=== PATIENT | male | born 1955 | race Caucasian/White ===

== ENCOUNTER 2017-08-05 17:13 | Inpatient (IN) | payer MEDICARE, BC ==
[~2017-08-05] VITALS: Ht 172.7 cm; Wt 78.1 kg
[2017-08-05 17:58] LABS: BASO % 0.2 % (0.0-2.0); GRAN # 3.8 (1.4-6.5); GRAN % 70.9 % (42.2-75.2); HEMATOCRIT 35.9 % (42.0-52.0); HEMOGLOBIN 11.7 g/dl (13.5-18.0); LYMPH % 18.9 % (20.0-51.0); MEAN CELL VOLUME 86 fl (80.0-100.0); MEAN CORPUSCULAR HEMOGLOBIN 28 pg (27.0-31.0); MEAN CORPUSCULAR HGB CONC 33 g/dl (33.0-37.0); MONO # 0.5 (0.1-0.6); MONO % 9.6 % (1.7-9.3); PLATELET COUNT 77 K/mm3 (130-400); REDCELL DISTRIBUTION WIDTH-CV 15.2 % (11.5-14.5)
[2017-08-05 18:02] LABS: ALANINE AMINOTRANSFERASE 50 U/L (21-72); ALBUMIN 4.2 gm/dL (3.5-5.0); ALKALINE PHOSPHATASE 86 U/L (50-136); ANION GAP 9 mmol/L (7-16); AST,SGOT 50 U/L (15-37); BILIRUBIN,TOTAL 0.2 mg/dL (0.0-1.0); BLOOD UREA NITROGEN 13 mg/dL (9-20); CALCIUM 8.3 mg/dL (8.4-10.2); CARBON DIOXIDE 27 mmol/L (22-30); CHLORIDE 98 mmol/L (98-107); CREATININE, serum 0.77 mg/dL (0.66-1.25); GLUCOSE 122 mg/dL (74-106); POTASSIUM 4.3 mmol/L (3.4-5.0); SODIUM 134 mmol/L (137-145); TOTAL PROTEIN 7.8 gm/dL (6.4-8.2)
[2017-08-05 18:14] LABS: TROPONIN-I < 0.012 ng/mL (0.000-0.034)
[2017-08-05] MEDS ORDERED: FIORICET 325 MG1 TA1 PO (18:24)
[2017-08-05] MEDS ORDERED: CATAPRES 0.1MG0.1 MG PO (18:25)
[2017-08-05] MEDS ORDERED: BENTYL 10MG10 MG/CAP PO (18:25)
[2017-08-05] MEDS ORDERED: SOMA 350MG350 MG/TAB PO (18:25)
[2017-08-05] MEDS ORDERED: LYRICA 50MG CAP50 MG PO (18:26)
[2017-08-05] MEDS ORDERED: NEURONTIN800 MG/TAB PO (18:26)
[2017-08-05] MEDS ORDERED: REMERON45 MG PO (18:27)
[2017-08-05] MEDS ORDERED: MORPHINE 1515 MG/TAB PO ×2 (18:28→18:29)
[2017-08-05] MEDS ORDERED: K-TAB10 PO (18:30)
[2017-08-05] MEDS ORDERED: PROTONIX 40MG T40 MG PO (18:30)
[2017-08-05] MEDS ORDERED: CARAFATE 1GM1 G PO (18:31)
[2017-08-05] MEDS ORDERED: NEURONTIN100 MG/CAP PO ×2 (18:32→21:15)
[2017-08-05] MEDS ORDERED: DESYREL 100MG100 MG PO (18:32)
[2017-08-05] MEDS ORDERED: MORPHINE ER PO (18:34)
[2017-08-05] MEDS ORDERED: KLONOPIN 0.5MG0.5 MG PO (18:34)
[2017-08-05 20:29] VITALS: BP 122/69; PULSE 58; TEMP 99.4
[2017-08-05] MEDS ORDERED: Promethazine PO (21:17)
[2017-08-06] VITALS (7 sets, daily range): BP systolic 112–125; BP diastolic 64–77; PULSE 48–54; TEMP 97.2–97.9
[2017-08-06 02:14] LABS: INR 1.2 (0.8-3.0); PROTHROMBIN TIME 13.5 SECONDS (9.7-12.8)
[2017-08-06 02:17] LABS: PARTIAL THROMBOPLASTIN TIME 26.8 SECONDS (26.0-37.0)
[2017-08-06 06:51] LABS: MEAN CELL VOLUME 88 fl (80.0-100.0); MEAN CORPUSCULAR HGB CONC 32 g/dl (33.0-37.0); PLATELET COUNT 73 K/mm3 (130-400); REDCELL DISTRIBUTION WIDTH-CV 15.7 % (11.5-14.5)
[2017-08-06 07:01] LABS: ALBUMIN 3.6 gm/dL (3.5-5.0); BILIRUBIN,TOTAL 0.2 mg/dL (0.0-1.0); CALCIUM 7.7 mg/dL (8.4-10.2); CREATININE, serum 0.67 mg/dL (0.66-1.25); POTASSIUM 4.2 mmol/L (3.4-5.0); TOTAL PROTEIN 6.9 gm/dL (6.4-8.2)
[2017-08-06 07:08] LABS: HEMATOCRIT 33.3 % (42.0-52.0); HEMOGLOBIN 10.6 g/dl (13.5-18.0); MEAN CORPUSCULAR HEMOGLOBIN 28 pg (27.0-31.0)
[2017-08-06 09:25] LABS: BAND 22 % (0-10); LYMPHOCYTE 26 % (20.0-51.0); METAMYELOCYTE 1 % (0-0); NEUTROPHILS 40 % (42.0-75.2)
[2017-08-06 09:26] LABS: PLATELET ESTIMATE DECREASED (NORMAL)
[2017-08-07 03:22] VITALS: BP 115/61; PULSE 55; TEMP 97.4
[2017-08-07 07:56] LABS: BASO % 0.2 % (0.0-2.0); EOS # 0.1 (0.0-0.7); EOS % 1.1 % (0-4.0); GRAN # 2.9 (1.4-6.5); GRAN % 65.6 % (42.2-75.2); LYMPH # 1.2 (1.2-3.4); LYMPH % 26.3 % (20.0-51.0); MEAN CELL VOLUME 90 fl (80.0-100.0); MEAN CORPUSCULAR HGB CONC 31 g/dl (33.0-37.0); MEAN PLATELET VOLUME 11.1 fl (7.4-10.4); MONO # 0.3 (0.1-0.6); MONO % 6.6 % (1.7-9.3); PLATELET COUNT 73 K/mm3 (130-400); RED BLOOD COUNT 3.92 M/mm3 (4.20-5.60); REDCELL DISTRIBUTION WIDTH-CV 15.9 % (11.5-14.5)
[2017-08-07 08:06] LABS: CALCIUM 7.7 mg/dL (8.4-10.2); CREATININE, serum 0.75 mg/dL (0.66-1.25); POTASSIUM 4.5 mmol/L (3.4-5.0)
[2017-08-07 08:10] LABS: HEMATOCRIT 35.2 % (42.0-52.0); HEMOGLOBIN 10.9 g/dl (13.5-18.0); MEAN CORPUSCULAR HEMOGLOBIN 28 pg (27.0-31.0)
[2017-08-07 09:03] VITALS: BP 120/66; PULSE 70; TEMP 98.2
[2017-08-07 10:33] VITALS: BP 111/57; PULSE 61; TEMP 99.2
[2017-08-07 17:03] LABS: IEPS IGA 126 mg/dL (63-484); IEPS IGG 1629 mg/dL (540-1822); IEPS TP 6.7 g/dL (6.0-7.6)
[2017-08-07 17:06] VITALS: BP 128/65; PULSE 69; TEMP 98.5
[2017-08-07 20:01] VITALS: BP 126/76; PULSE 60; TEMP 97.6
[2017-08-08 00:55] VITALS: BP 128/76; PULSE 58; TEMP 98.4
[2017-08-08 03:49] VITALS: BP 112/64; PULSE 57; TEMP 97.8
[2017-08-08 06:55] LABS: BASO % 0.3 % (0.0-2.0); EOS # 0.1 (0.0-0.7); EOS % 2.4 % (0-4.0); GRAN # 1.8 (1.4-6.5); GRAN % 54.4 % (42.2-75.2); LYMPH # 1.1 (1.2-3.4); LYMPH % 34.1 % (20.0-51.0); MEAN CELL VOLUME 88 fl (80.0-100.0); MEAN CORPUSCULAR HGB CONC 32 g/dl (33.0-37.0); MEAN PLATELET VOLUME 11.1 fl (7.4-10.4); MONO # 0.3 (0.1-0.6); MONO % 8.5 % (1.7-9.3); PLATELET COUNT 73 K/mm3 (130-400); RED BLOOD COUNT 3.75 M/mm3 (4.20-5.60); REDCELL DISTRIBUTION WIDTH-CV 15.7 % (11.5-14.5)
[2017-08-08 07:02] LABS: HEMATOCRIT 32.9 % (42.0-52.0); HEMOGLOBIN 10.5 g/dl (13.5-18.0); MEAN CORPUSCULAR HEMOGLOBIN 28 pg (27.0-31.0)
[2017-08-08 07:05] LABS: CALCIUM 8.3 mg/dL (8.4-10.2); CREATININE, serum 0.79 mg/dL (0.66-1.25); POTASSIUM 4.3 mmol/L (3.4-5.0)
[2017-08-08 07:36] VITALS: BP 118/74; PULSE 92; TEMP 97.8
[2017-08-08 10:39] VITALS: BP 116/65; PULSE 65; TEMP 97.7
[2017-08-08 10:41] VITALS: BP 120/70; PULSE 73
[2017-08-08 10:44] VITALS: BP 112/72; PULSE 79
[2017-08-08] MEDS ORDERED: LEVAQUIN 750MG750 M1 PO (11:07)
[2017-08-08 14:01] LABS: ALBUMIN FRACTION 3.6 g/dL (2.6-4.5); ALBUMIN PERCENT 53.3 % (48.7-61.8); ALPHA 1 FRACTION 0.3 g/dL (0.3-0.5); ALPHA 1 PERCENT 4.9 % (3.4-8.3); ALPHA 2 FRACTION 0.7 g/dL (0.6-1.2); ALPHA 2 PERCENT 10.2 % (8.4-17.5); BETA 1 FRACTION 0.4 g/dL (0.4-0.6); BETA 1 PERCENT 5.8 % (5.4-8.9); BETA 2 FRACTION 0.3 g/dL (0.2-0.5); BETA 2 PERCENT 4.3 % (3.8-7.7); IEPS GAMMA FRACTION 1.4 g/dL (0.4-1.7); IEPS GAMMA PERCENTAGE 21.5 % (8.1-23.0); IEPS IGM 133 mg/dL (22-240); IEPS MON1E 0.9 g/dL (())
[2017-08-08 18:03] LABS: KAPPA FREE LIGHT CHAIN-SERUM 3.43 mg/dL (()); LAMDA FREE LIGHT CHAIN SERUM 1.97 mg/dL (())
== END 2017-08-08 16:19 | disposition home or self-care (01) | DRG 193 ==
LOC: COL.ER 17:13 → MEDICAL 19:23
PROVIDERS: Emergency Medicine; Internal Medicine; Nurse Practitioner Family; Physician Assistant
DX: J12.3 Human metapneumovirus pneumonia (principal); J96.01 Acute respiratory failure with hypoxia; D61.818 Other pancytopenia; G89.21 Chronic pain due to trauma
CPT/HCPCS: 99223-AI; 99233-AI; 99239; J1956; J2405; J7030

== ENCOUNTER 2017-12-15 11:37 | Outpatient (CLI) | payer MEDICARE, BC ==
[~2017-12-15] VITALS: Ht 172.7 cm; Wt 73.0 kg
[2017-12-15] VITALS (12 sets, daily range): BP systolic 99–124; BP diastolic 56–70; PULSE 39–46; TEMP 97.7
[~2017-12-15 11:37] MED LIST: BENTYL 10MG10 MG/CAP PO; CARAFATE 1GM1 G PO; CATAPRES 0.1MG0.1 MG PO; DESYREL 100MG100 MG PO; FIORICET 325 MG1 TA1 PO; K-TAB10 PO; KLONOPIN 0.5MG0.5 MG PO; LEVAQUIN 750MG750 M1 PO; LYRICA 50MG CAP50 MG PO; MORPHINE 1515 MG/TAB PO; MORPHINE ER PO; NEURONTIN100 MG/CAP PO; NEURONTIN800 MG/TAB PO; PROTONIX 40MG T40 MG PO; Promethazine PO; REMERON45 MG PO; SOMA 350MG350 MG/TAB PO
[2017-12-15] MEDS ORDERED: NEURONTIN800 MG/TAB PO (12:17)
[2017-12-15] MEDS ORDERED: REMERON SOLTAB45 MG PO (12:27)
[2017-12-15 14:51] LABS: BASO % 0.5 % (0.0-2.0); EOS # 0.2 (0.0-0.7); EOS % 4.4 % (0-4.0); GRAN # 2.2 (1.4-6.5); GRAN % 53.8 % (42.2-75.2); HEMOGLOBIN 11.5 g/dl (13.5-18.0); LYMPH # 1.2 (1.2-3.4); LYMPH % 29.5 % (20.0-51.0); MEAN CELL VOLUME 90 fl (80.0-100.0); MEAN CORPUSCULAR HEMOGLOBIN 30 pg (27.0-31.0); MEAN CORPUSCULAR HGB CONC 33 g/dl (33.0-37.0); MEAN PLATELET VOLUME 10.5 fl (7.4-10.4); MONO # 0.5 (0.1-0.6); MONO % 11.6 % (1.7-9.3); PLATELET COUNT 107 K/mm3 (130-400); RED BLOOD COUNT 3.87 M/mm3 (4.20-5.60); REDCELL DISTRIBUTION WIDTH-CV 13.3 % (11.5-14.5)
[2017-12-15 14:52] LABS: HEMATOCRIT 34.7 % (42.0-52.0)
== END 2017-12-15 17:00 | disposition home or self-care (01) ==
LOC: EUO 11:37 → COL.RAD 12:30 → EUO 17:00
PROVIDERS: Pathology Anatomic Pathology & Clinical Pathology
DX: D47.2 Monoclonal gammopathy (principal); D61.818 Other pancytopenia

== ENCOUNTER → 2017-12-22 | Outpatient (CLI) | payer MEDICARE, BC ==
[~2017-12-22] MED LIST changes: +REMERON SOLTAB45 MG PO
== END ==
LOC: COL.PUL 12:50
DX: R06.02 Shortness of breath (principal)
CPT/HCPCS: J7674

== ENCOUNTER 2020-10-10 08:42 | Observation (INO) | payer MEDICARE, BC ==
[~2020-10-10] VITALS: Ht 172.7 cm; Wt 160.0 kg
[~2020-10-10 08:42] MED LIST changes: +CEPHALEXIN500 M1 PO; -MORPHINE ER PO; +MS CONTIN 115 MG/TAB PO; +NEURONTIN300 MG/CAP PO; +PHENERGAN 25 TA25 MG PO; -Promethazine PO; +ZEBETA 5MG5 MG PO; +pain pump ICA
[2020-10-10 12:26] VITALS: BP 140/81; PULSE 62; TEMP 97.8
[2020-10-10] MEDS ORDERED: ZYVOX 600MG600 MG PO (13:41)
[2020-10-10 16:53] VITALS: BP 144/78; PULSE 60; TEMP 97.8
--- NOTE | 2020-10-10 18:08 | NUR ---
DR. MCGILL'S OFFICE CALLED TO VERIFY MEDICATIONS IN PAIN PUMP AND DOSES, MED REC COMPLETED WITH . PT REFUSES TO DRINK OR TAKE PO MEDICATIONS. HAS REPORTED VOMITTING ONCE WHILE HERE THIS EVENING. LR HANGING AT 75ML/HR. PT AWAITING BEING TAKEN DOWN TO CT THIS EVENING FOR CT OF ABDOMEN.
--- NOTE | 2020-10-10 20:00 | NUR ---
Assessment complete. Patient is currently resting in bed; he does arouse to voice but is drowsy. He is alert and oriented with complaints of nausea. He has not actively vomited this shift. PRN Zofran is adminstered. Patient states his LLQ pain is tolerable at 1/[address] Arnett has just been in to drain 96 mls of clear,florencio fluid from around the patient's pain pump which relieved his pain. Dr. Arnett states no signs of infection were noted. No peripheral edema is noted. All bowel sounds are audible and abdomen is flat and soft. Heart sounds are normal/regular and lungs are clear. No new concerns, call light in reach.
--- NOTE | 2020-10-10 21:31 | NUR ---
PATIENT [facility] PROVIDED CPAP MACHINE
[2020-10-10 23:33] VITALS: BP 118/71; PULSE 60; TEMP 97.4
[2020-10-11 03:25] VITALS: BP 122/74; PULSE 60; TEMP 97.5
[2020-10-11 06:11] LABS: BASO % 0.8 % (0.0-2.0); EOS # 0.1 (0.0-0.7); GRAN # 1.5 (1.4-6.5); GRAN % 56.5 % (42.2-75.2); HEMOGLOBIN 10.6 g/dl (13.5-18.0); LYMPH # 0.8 (1.2-3.4); LYMPH % 30.2 % (20.0-51.0); MEAN CELL VOLUME 95 fl (80.0-100.0); MEAN CORPUSCULAR HEMOGLOBIN 31 pg (27.0-31.0); MEAN CORPUSCULAR HGB CONC 33 g/dl (33.0-37.0); MEAN PLATELET VOLUME 10.6 fl (7.4-10.4); MONO # 0.2 (0.1-0.6); MONO % 9.1 % (1.7-9.3); PLATELET COUNT 107 K/mm3 (130-400); REDCELL DISTRIBUTION WIDTH-CV 12.9 % (11.5-14.5)
[2020-10-11 06:22] LABS: CALCIUM 8.2 mg/dL (8.4-10.2); CREATININE, serum 0.94 (0.66-1.25); MAGNESIUM 1.8 mg/dL (1.6-2.3)
--- NOTE | 2020-10-11 06:30 | NUR ---
Patient has had an uneventful night. He has rested throughout the night with no further complaints of pain/nausea. Vital signs have remained stable. LR still infusing into right forearm IV at 75 ml/hr. Will continue to monitor.
[2020-10-11 06:33] LABS: HEMATOCRIT 32.2 % (42.0-52.0)
--- NOTE | 2020-10-11 07:00 | NUR ---
Report received from CATRINA Figueroa. PT in bed resting, feeling nauseated, will provide nausea meds.
[2020-10-11 07:44] VITALS: BP 132/76; PULSE 60; TEMP 97.6
--- NOTE | 2020-10-11 09:12 | NUR ---
Assessment charted. Pt feeling nauseated, PRN nausea meds provided per reqeust. Discussed plan of care and that Dr. Arnett came yesterday and aspirated 96mls from LLQ site. RLQ brianne are intact. PT states he is feeling poorly today, at bedside, will get urine shortly. Will continue to monitor.
[2020-10-11] MEDS ORDERED: FLOMAX 0.40.4 MG/CAP PO (10:21)
[2020-10-11] MEDS ORDERED: ZOFRAN ODT8 MG PO (10:22)
[2020-10-11] MEDS ORDERED: PROTONIX 40MG T40 MG PO (10:23)
[2020-10-11 10:37] LABS: COLLECTION METHOD CLEAN CATCH
[2020-10-11 10:50] LABS: PH 5 (5-8); URINE APPEARANCE Clear; URINE COLOR Yellow; URINE PROTEIN(semi-quant) Negative (NEGATIVE)
[2020-10-11 10:51] LABS: URINE BILIRUBIN Negative (NEGATIVE); URINE GLUCOSE Negative (NEGATIVE); URINE KETONE Trace (NEGATIVE); URINE UROBILINOGEN Negative (NEGATIVE)
[2020-10-11 10:52] LABS: URINE BLOOD Negative (NEGATIVE); URINE LEUKOCYTE ESTERASE Negative (NEGATIVE); URINE NITRATE Negative (NEGATIVE)
--- NOTE | 2020-10-11 12:58 | NUR ---
Sweep Press Operator attended clinical rounds with the team. PT/OT ordered for patient, who will discharge later today. SW met with patient following rounds to discuss discharge planning. Patient lives in [place], [place] with his , Rebeka (ph#[phone]) who is at bedside. Patient sees Dr. Otto in [place] for primary care and obtains medications from [facility] in [place]. Patient states one of his antibiotics is expensive, but they are able to afford it. Patient wears a bipap at night and has no other DME. Patient is independent with ADLS and plans to return home upon discharge. Patient reports he has DPOA-HC completed which designates his . Discharge Plan: Home
--- NOTE | 2020-10-11 13:09 | NUR ---
First visit from the proofsheet corrector. No needs right now.
--- NOTE | 2020-10-11 13:13 | NUR ---
Discharge completed at this time, INT dc'd, tip intact. Pt received discahrge packet, answered all questions, reviewed new meds. at bedside. Pt left with all bleonigngs, escorted out via wheelchair, to drive home, criteria met.
== END 2020-10-11 12:07 | disposition home or self-care (01) ==
LOC: MEDICAL 08:42
PROVIDERS: ADMIT Family Medicine
DX: G89.29 Other chronic pain (principal); T14.8XXA Other injury of unspecified body region, initial encounter; J18.9 Pneumonia, unspecified organism; R11.2 Nausea with vomiting, unspecified; R00.1 Bradycardia, unspecified; R35.1 Nocturia; N20.0 Calculus of kidney; K59.00 Constipation, unspecified; J44.9 Chronic obstructive pulmonary disease, unspecified; J96.11 Chronic respiratory failure with hypoxia; D61.818 Other pancytopenia; G43.909 Migraine, unspecified, not intractable, without status migrainosus; G47.00 Insomnia, unspecified; K21.9 Gastro-esophageal reflux disease without esophagitis; Z88.5 Allergy status to narcotic agent; Z96.642 Presence of left artificial hip joint; Z99.89 Dependence on other enabling machines and devices; Z79.899 Other long term (current) drug therapy; Z79.891 Long term (current) use of opiate analgesic; Z82.49 Family history of ischemic heart disease and other diseases of the circulatory system
CPT/HCPCS: 99239; G0378; J2405; J7120; Q9967

== ENCOUNTER 2021-01-31 07:52 | Day surgery (SDC) | payer MEDICARE, BC ==
[~2021-01-31] VITALS: Ht 172.7 cm; Wt 70.7 kg
[~2021-01-31 07:52] MED LIST changes: +FLOMAX 0.40.4 MG/CAP PO; +ZOFRAN ODT8 MG PO; +ZYVOX 600MG600 MG PO
[2021-01-31] MEDS ORDERED: MASON NATURAL2000 IU PO (08:25)
[2021-01-31 08:29] VITALS: BP 115/84; PULSE 60; TEMP 97.9
[2021-01-31 10:35] VITALS: BP 115/74; PULSE 63; TEMP 97.6
[2021-01-31 10:50] VITALS: BP 123/75; PULSE 60; TEMP 96.9
--- NOTE | 2021-01-31 11:13 | NUR ---
1050: PATIENT TOLERATED ICE CREAM AND WATER. VITAL SIGNS STABLE. AT BEDSIDE. REMOVED IV. EDUCATED PATIENT ON DISCHARGE INSTRUCTIONS. QUESTIONS ANSWERED, VERBALIZED UNDERSTANDING TO EDUCATION. PATIENT GOT DRESSED INDEPENDENTLY 1100: PATIENT ESCORTED TO EXIT VIA WHEELCHAIR WITH AT SIDE.
== END 2021-01-31 11:44 ==
LOC: SDCO 07:52
DX: K20.90 Esophagitis, unspecified without bleeding (principal); K22.2 Esophageal obstruction; K22.4 Dyskinesia of esophagus; G47.33 Obstructive sleep apnea (adult) (pediatric); K21.9 Gastro-esophageal reflux disease without esophagitis; G89.29 Other chronic pain; G43.909 Migraine, unspecified, not intractable, without status migrainosus; K59.00 Constipation, unspecified; Z79.899 Other long term (current) drug therapy
CPT/HCPCS: C1726; J2704; J7030